=== PATIENT | female | born 1955 | race Caucasian/White ===

== ENCOUNTER 2017-12-27 13:53 | Observation (INO) ==
[2017-12-27] MEDS ORDERED: Sod Chloride 0.9% Inj 1,000 ML IV.SIG ONE (16:05)
--- NOTE | 2017-12-27 16:23 | ED ---
HPI General Chief Complaint: Headache Stated Complaint: Medical Time Seen by Provider: 12/27/17 16:05 Source: patient Mode of arrival: ambulatory Limitations: no limitations History of Present Illness HPI Narrative: 62-year-old female presents to the emergency department evaluation of headache, fatigue, stiff neck, general malaise that started proximal 1 week ago. Patient states that she went to her primary care physician , Dr. Webb, who recommended she come in for meningitis rule out. Patient states that she began having a headache approximately 1 week ago and has taken Advil once but this did not help her pain. Patient says the pain is diffuse across her entire head, dull, 7/10 and nonradiating. Patient states that the anterior portion of her neck is also tender. States she has occasional blurred vision and mild photophobia. She denies history of trauma. Has occasional passing nausea without vomiting. Denies of upper respiratory type of symptoms. Denies loss of consciousness. She denies rash. 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 She denies chronic medical issues or medication use. Related Data Home Medications Medication Instructions Recorded Confirmed No Known Home Medications 12/27/17 12/27/17 Allergies Allergy/AdvReac Type Severity Reaction Status Date / Time Sulfa (Sulfonamide Allergy Severe RASH Unverified 10/31/16 23:00 Antibiotics) Review of Systems ROS: all other systems reviewed are negative PMFSH Social History Social History Substance History: No History of Abuse Second Hand Smoke Exposure: No Smoking Status: Never smoker How Often Do You Have a Drink Containing Alcohol: 2 to 3 times a week Recent Travel in [facility] within the Last 8 Weeks: No Recent Out of Country Travel within the Last 8 Weeks: No Exam Narrative Exam Narrative: GENERAL: Well-developed, well-nourished no acute distress SKIN: Focused skin assessment warm/dry. HEAD: Atraumatic. Normocephalic. EYES: Pupils equal and round. No scleral icterus. No injection or drainage. ENT: No nasal bleeding or discharge. Mucous membranes pink and moist. NECK: Trachea midline. No JVD. Tenderness to palpation of the anterior portion of her neck, unable to fully flex or extend neck. Palpable cords present. CARDIOVASCULAR: Regular rate and rhythm. No murmur appreciated. RESPIRATORY: No accessory muscle use. Clear to auscultation. Breath sounds equal bilaterally. GASTROINTESTINAL: Abdomen soft, non-tender, nondistended. Hepatic and splenic margins not palpable. MUSCULOSKELETAL: No obvious deformities. No clubbing. No cyanosis. No edema. NEUROLOGICAL: Awake and alert. No obvious cranial nerve deficits. Motor grossly within normal limits. Normal speech. PSYCHIATRIC: Appropriate mood and affect; insight and judgment normal. Procedures Lumbar Puncture Time Out Performed: Yes Patient Position: left lateral decubitus Skin Prep: Povidone-Iodine 1% Local anesthetic used: Lidocaine 1% Amount of anesthesia used (mL): 3 Spinal Needle Gauge: 20G Interspace Used: L4-L5 Complications: unable to obtain CSF Additional Comments: Only one attempt was performed with a 20-gauge spinal needle and the patient complained of pain shooting down her legs, therefore the procedure was stopped. Course Initial Documented Vital Signs Temperature 98.4 F 12/27/17 14:09 Pulse Rate 71 12/27/17 14:09 Respiratory Rate 18 12/27/17 14:09 Blood Pressure 151/68 H 12/27/17 14:09 Pulse Oximetry 99 12/27/17 14:09 Last Documented Vital Signs Temperature 97.6 F 12/27/17 23:16 Pulse Rate 59 L 12/27/17 23:16 Respiratory Rate 18 12/27/17 23:16 Blood Pressure 132/71 12/27/17 23:16 Pulse Oximetry 96 12/27/17 23:16 Medical Decision Making NILS Attestation NILS supervised visit: Yes Attestation: At my mid-level note. See her note for further details. This is a 62-year-old female who was sent in by her primary care physician to rule out meningitis because she has had headache and neck stiffness. Her symptoms have been going on for over a week, gradual in onset, worse over the last couple of days. Headache is diffuse, described as pressure, severe, constant, associated with nausea, photophobia, neck pain and stiffness. She has not had any fevers or chills. CT head is unremarkable. Basic labs are unremarkable. The patient was provided Reglan and Toradol without improvement in her headache. LP was attempted by me to rule out SAH after informed consent was obtained for this procedure. I was unsuccessful. CTA of the brain and neck will be ordered to look for possible aneurysm. CTA brain and neck showed no obvious [place] aneurysms or abnormalities or neck arterial aneurysms or abnormalities. The patient had received 10 mg of IV Reglan, 30 mg of IV Toradol, and 4 mg of IV morphine, and on reassessment she states her pain is now 6. She continues to have photophobia. I explained all the tests in detail with the patient and the patient's son via cell phone. Given ongoing pain, I would like to admit her for overnight observation as I cannot 100% rule out a subarachnoid hemorrhage. I do not believe that this is meningitis. She is afebrile and very well-appearing, no nuchal rigidity, normal CBC. Case discussed with hospitalist Dr. Benitez who will admit the patient to her service for intractable headache and further workup. MDM Narrative Medical decision making narrative: 62-year-old female presents to the emergency department for evaluation of a headache started 1 week ago. She was advised to come to the emergency department by her primary care physician, Dr. Webb who recommended a rule out of meningitis. Labs are ordered and are stable. Vital signs are stable. Please see my attending's note as well regarding treatment today. Benadryl, Reglan, morphine, Toradol administered for pain. 1 L normal saline administered. Patient continues to have a headache. Admitted patient for intractable headache. Medical Screen Exam Complete: Yes Emergency Medical Condition: Yes Differential Diagnosis Differential Diagnosis: SAH, ICH, migraine, tension headache Lab Data Result diagrams: 12/27/17 16:20 12/27/17 16:20 Lab Results 12/27/17 12/27/17 12/27/17 Range/Units 16:20 16:20 16:20 WBC 6.1 (4.0-11.0) th/mm3 RBC 4.37 (4.00-5.30) mil/mm3 Hgb 13.5 (11.6-15.3) gm/dL Hct 39.5 (35.0-46.0) % MCV 90.3 (80.0-100.0) fL MCH 30.9 (27.0-34.0) pg MCHC 34.2 (32.0-36.0) % RDW 13.2 (11.6-17.2) % Plt Count 230 (150-450) th/mm3 MPV 9.2 (7.0-11.0) fL Neut % (Auto) 67.0 (16.0-70.0) % Lymph % (Auto) 26.8 (9.0-44.0) % [place] % (Auto) 4.5 (0.0-8.0) % Eos % (Auto) 0.9 (0.0-4.0) % Baso % (Auto) 0.8 (0.0-2.0) % Neut # (Auto) 4.1 (1.8-7.7) th/mm3 Lymph # (Auto) 1.6 (1.0-4.8) th/mm3 [place] # (Auto) 0.3 (0.0-0.9) th/mm3 Eos # (Auto) 0.1 (0.0-0.4) th/mm3 Baso # (Auto) 0.0 (0.0-0.2) th/mm3 WBC Differential . Differential Comment Auto diff final PT 9.8 (9.8-11.6) sec INR 1.0 Ratio APTT 25.5 (24.3-30.1) sec Sodium 143 (136-145) meq/L Potassium 3.5 (3.5-5.1) meq/L Chloride 104 (98-107) meq/L Carbon Dioxide 27.9 (21.0-32.0) meq/L Anion Gap 11 (5-15) meq/L BUN 12 (7-18) mg/dL Creatinine 0.81 (0.50-1.00) mg/dL Estimated GFR 72 L (>89) mL/min Random Glucose 92 (74-106) mg/dL Calcium 9.0 (8.5-10.1) mg/dL Total Bilirubin 0.4 (0.2-1.0) mg/dL AST 22 (15-37) U/L ALT 29 (10-53) U/L Alkaline Phosphatase 92 (45-117) U/L Total Protein 8.0 (6.4-8.2) g/dL Albumin 4.3 (3.4-5.0) g/dL Imaging Data Radiologist's impression: Head CT 12/27/17 16:05 CONCLUSION: 1. No acute intracranial abnormality. . Head CTA 12/27/17 18:51 CONCLUSION: No acute [place] vascular findings. Neck CTA 12/27/17 18:51 CONCLUSION: Negative CTA Carotid. Discharge Plan Discharge Disposition Patient Disposition: 30 Still Patient Discharge Condition Condition: Stable Discharge Details Diagnosis: Intractable headache Physicians Team ED Provider: Jonathan Kumar ED Midlevel Provider: Lucy Romero Primary Care Provider: Primary Care Estelle Viveros Attending Provider: Bhumi Benitez Status ED Status: Left Department Discharge Information Discharge Date/Time: 12/27/17 23:01
[2017-12-27 16:39] LABS: Baso % (Auto) 0.8 % (0.0-2.0); Eos # (Auto) 0.1 th/mm3 (0.0-0.4); Eos % (Auto) 0.9 % (0.0-4.0); Hematocrit 39.5 % (35.0-46.0); Hemoglobin 13.5 gm/dL (11.6-15.3); Lymph # (Auto) 1.6 th/mm3 (1.0-4.8); Lymph % (Auto) 26.8 % (9.0-44.0); Mean Corpuscular HGB Conc 34.2 % (32.0-36.0); Mean Corpuscular Hemoglobin 30.9 pg (27.0-34.0); Mean Corpuscular Volume 90.3 fL (80.0-100.0); Mean Platelet Volume 9.2 fL (7.0-11.0); Mono # (Auto) 0.3 th/mm3 (0.0-0.9); Mono % (Auto) 4.5 % (0.0-8.0); Neut # (Auto) 4.1 th/mm3 (1.8-7.7); Platelet Count 230 th/mm3 (150-450); Red Blood Count 4.37 mil/mm3 (4.00-5.30); Red Cell Distribution Width 13.2 % (11.6-17.2); White Blood Count 6.1 th/mm3 (4.0-11.0)
--- NOTE | 2017-12-27 16:48 | CT ---
EXAM DATE: 12/27/2017 4:10 PM EDT AGE/SEX: 62 years / Female INDICATIONS: Stiff neck and headache. Possible meningitis. CLINICAL DATA: This is the patient's initial encounter. Patient reports that signs and symptoms have been present for 3 days and indicates a pain score of 7/10. MEDICAL/SURGICAL HISTORY: None. None. RADIATION DOSE: 56.35 CTDI (mGy) COMPARISON: [facility], MR BRAIN W/O CONTRAST, 04/14/2015. . TECHNIQUE: CT of the head without contrast. Using automated exposure control and adjustment of the mA and/or kV according to patient size, radiation dose was kept as low as reasonably achievable to ob tain optimal diagnostic quality images. DICOM format image data is available electronically for revi ew and comparison. FINDINGS: Cerebrum: Mild to moderate diffuse cerebral atrophy. The ventricles are normal for degree of atrophy . Nonspecific bilateral basal ganglia calcifications. No evidence of midline shift, mass lesion, hemo rrhage or acute infarction. No extraaxial fluid collections are seen. Posterior Fossa: The cerebellum and brainstem are intact. The 4th ventricle is midline. The cerebe llopontine angle is unremarkable. Extracranial: The visualized portion of the orbits is intact. Skull: The calvaria is intact. No evidence of skull fracture. CONCLUSION: 1. No acute intracranial abnormality. . Electronically signed by: Tim Campbell MD 12/27/2017 4:47 PM EDT
[2017-12-27 16:54] LABS: Activated Partial Thrombo Time 25.5 sec (24.3-30.1); Prothrombin Time 9.8 sec (9.8-11.6)
[2017-12-27 17:12] LABS: Alanine Aminotransferase 29 U/L (10-53); Albumin 4.3 g/dL (3.4-5.0); Anion Gap 11 meq/L (5-15); Aspartate Aminotransferase 22 U/L (15-37); Blood Urea Nitrogen 12 mg/dL (7-18); Carbon Dioxide 27.9 meq/L (21.0-32.0); Chloride 104 meq/L (98-107); Glomerular Filtration Rate 72 mL/min (>89); Glucose,Random 92 mg/dL (74-106); Potassium 3.5 meq/L (3.5-5.1); Sodium 143 meq/L (136-145)
[2017-12-27 17:15] LABS: Alkaline Phosphatase 92 U/L (45-117)
[2017-12-27] MEDS ORDERED: Morphine Inj 4 MG/ML Vial IV.PUSH ONE (18:28)
--- NOTE | 2017-12-27 20:46 | CT ---
EXAM DATE: 12/27/2017 7:09 PM EDT AGE/SEX: 62 years / Female INDICATIONS: Stiff neck and headache. Evaluate for aneurysm. CLINICAL DATA: This is the patient's subsequent encounter. Patient reports that signs and symptoms h ave been present for 3 days and indicates a pain score of 7/10. MEDICAL/SURGICAL HISTORY: None. None. RADIATION DOSE: 24.75 CTDI (mGy) ; Combined studies COMPARISON: [facility] [place], [place] HEAD W/O CONTRAST, 12/27/2017. . TECHNIQUE: Volumetric scanning was performed using a multi-row detector CT scanner during bolus infu michelle of 75 ml Omnipaque 350 (iohexol) nonionic water-soluble contrast as a cumulative dose for multi ple exams. The data was post processed with a variety of visualization algorithms including full vo lume maximum intensity projection, multi-planar sliding thin slab reformation, curved planar reformat ion, and surface rendering techniques. Using automated exposure control and adjustment of the mA and /or kV according to patient size, radiation dose was kept as low as reasonably achievable to obtain o ptimal diagnostic quality images. DICOM format image data is available electronically for review and comparison. FINDINGS: There is excellent visualization of the major intracranial arteries out to the second-order branch ve ssels. There is no evidence for aneurysm, vessel truncation or stenosis, and no evidence for vascula r malformation. The A1 segment of left anterior cerebral artery is mildly hypoplastic. CONCLUSION: No acute [place] [facility] [place] vascular findings. Electronically signed by: Choco Burnett MD 12/27/2017 8:45 PM EDT
--- NOTE | 2017-12-27 21:07 | CT ---
EXAM DATE: 12/27/2017 7:09 PM EDT AGE/SEX: 62 years / Female INDICATIONS: Stiff neck and headache. Evaluate for aneurysm. CLINICAL DATA: This is the patient's subsequent encounter. Patient reports that signs and symptoms h ave been present for 3 days and indicates a pain score of 7/10. MEDICAL/SURGICAL HISTORY: None. None. RADIATION DOSE: 24.75 CTDI (mGy) ; Combined studies COMPARISON: No prior exams available for comparison. TECHNIQUE: Volumetric scanning was performed using a multirow detector CT scanner during bolus infus ion of 75 ml Omnipaque 350 (iohexol) nonionic water-soluble contrast as a cumulative dose for multip le exams. The data was postprocessed with a variety of visualization algorithms including full-volu me maximum intensity projection, multiplanar sliding thin-slab reformation, curved-planar reformation , and surface-rendering techniques. Using automated exposure control and adjustment of the mA and/or kV according to patient size, radiation dose was kept as low as reasonably achievable to obtain opti mal diagnostic quality images. DICOM format image data is available electronically for review and co mparison. Percent stenosis is calculated using the diameter of the stenotic region over the diameter of the nor mal distal internal carotid artery. FINDINGS: Aortic Arch: There is a three-vessel origin of the great vessels from the aorta. No evidence of ost ial narrowing Right Carotid: The common carotid artery is intact. The carotid bulb has a normal configuration wit hout ulceration or narrowing. The internal carotid artery lumen is smooth without stenosis. The ext ernal carotid artery is intact. Left Carotid: The common carotid artery is intact. The carotid bulb has a normal configuration with out ulceration or narrowing. The internal carotid artery lumen is smooth without stenosis. The exte rnal carotid artery is intact. Vertebrals: The vertebral arteries have a symmetric diameter. No stenotic lesions are seen. CONCLUSION: Negative CTA Carotid. Electronically signed by: Choco Burnett MD 12/27/2017 9:06 PM EDT
[2017-12-27] MEDS ORDERED: Acetaminophen 325 MG Tablet PO PRN (22:21)
[2017-12-27] MEDS ORDERED: Bisacodyl 10 MG Supp RECTAL PRN (22:21)
--- NOTE | 2017-12-27 22:23 | P.HPIM ---
History of Present Illness Primary Care Physician: No Primary Care Physician PMFSH - History History Provided By: Patient - Tobacco History Smoking Status: Never smoker - Alcohol History How Often Do You Have a Drink Containing Alcohol: Monthly or less - Substance Use History Substance History: No History of Abuse - Travel History Recent Travel in the [place] Within the Last 8 Weeks: No Recent Travel Out of the Country Within the Last 8 Weeks: No - Immunization History Tetanus Immunization: <5 Years Medications and Allergies Active Medications: Active Medications Sodium Chloride (Ns Flush) 2 ml IV.FLUSH PRN PRN PRN Reason: FLUSH AFTER USING IV ACCESS Allergies Allergy/AdvReac Type Severity Reaction Status Date / Time Sulfa (Sulfonamide Allergy Severe RASH Unverified 10/31/16 23:00 Antibiotics) Home Medications Medication Instructions Recorded Confirmed Type No Known Home Medications 12/27/17 12/27/17 History Exam Vital signs: Vital Signs 12/27/17 14:09 12/27/17 18:49 12/27/17 21:47 Temperature 98.4 F Pulse Rate 71 67 63 Respiratory Rate 18 17 18 Blood Pressure 151/68 H 121/69 103/63 Pulse Oximetry 99 98 Intake & Output 12/27/17 12/27/17 12/28/17 06:59 18:59 06:59 Intake Total 1000 / 1000 Balance 1000 / 1000 Weight 64.957 kg Intake: IV 1000 / 1000 NS Inj 1,000 ML @ Wide Open IV. 1000 / 1000 SIG BOLUS ONE Rx#:[id number] Results - Labs CBC & Chem 7: 12/27/17 16:20 12/27/17 16:20 Labs: Short CBC 12/27/17 Range/Units 16:20 WBC 6.1 (4.0-11.0) th/mm3 Hgb 13.5 (11.6-15.3) gm/dL Hct 39.5 (35.0-46.0) % Plt Count 230 (150-450) th/mm3 BMP 12/27/17 16:20 Sodium 143 Potassium 3.5 Chloride 104 Carbon Dioxide 27.9 BUN 12 Creatinine 0.81 Calcium 9.0 Liver Function 12/27/17 Range/Units 16:20 Total Bilirubin 0.4 (0.2-1.0) mg/dL AST 22 (15-37) U/L ALT 29 (10-53) U/L Alkaline Phosphatase 92 (45-117) U/L Albumin 4.3 (3.4-5.0) g/dL - Imaging Impressions Head CT 12/27/17 16:05 CONCLUSION: 1. No acute intracranial abnormality. . Head CTA 12/27/17 18:51 CONCLUSION: No acute [place] [facility] [place] vascular findings. Neck CTA 12/27/17 18:51 CONCLUSION: Negative CTA Carotid. Caprini VTE Risk Assessment Caprini Risk Assessment Model: Point Value = 1 Point Value = 2 Point Value = 3 Point Value = 5 Age 41-60 Minor surgery BMI > 25 kg/m2 Swollen legs Varicose veins or History of unexplained or recurrent spontaneous Oral contraceptives or hormone replacement Sepsis (< 1 month) Serious lung disease, including pneumonia (< 1 month) Abnormal pulmonary function Acute myocardial infarction Congestive heart failure (< 1 month) History of inflammatory bowel disease Medical patient at bed rest Age 61-74 Arthroscopic surgery Major open surgery (> 45 min) Laparoscopic surgery (> 45 min) Malignancy Confined to bed (> 72 hours) Immobilizing plaster cast Central venous access Age >= 75 History of VTE Family history of VTE Factor V Leiden Prothrombin [id number] Lupus anticoagulant Anticardiolipin antibodies Elevated serum homocysteine Heparin-induced thrombocytopenia Other congenital or acquired thrombophilia Stroke (< 1 month) Elective arthroplasty Hip, pelvis, or leg fracture Acute spinal cord injury (< 1 month) Prophylaxis Regimen: Total Risk Factor Score Risk Level Prophylaxis Regimen 0-1 Low Early ambulation 2 Moderate Order ONE of the following: *Sequential Compression Device (SCD) *Heparin 5000 units SQ BID 3-4 Higher Order ONE of the following medications: *Heparin 5000 units SQ TID *Enoxaparin/Lovenox 40 mg SQ daily (WT < 150 kg, CrCl > 30 mL/min) *Enoxaparin/Lovenox 30 mg SQ daily (WT < 150 kg, CrCl > 10-29 mL/min) *Enoxaparin/Lovenox 30 mg SQ BID (WT < 150 kg, CrCl > 30 mL/min) AND/OR *Sequential Compression Device (SCD) 5 or more Highest Order ONE of the following medications: *Heparin 5000 units SQ TID (Preferred with Epidurals) *Enoxaparin/Lovenox 40 mg SQ daily (WT < 150 kg, CrCl > 30 mL/min) *Enoxaparin/Lovenox 30 mg SQ daily (WT < 150 kg, CrCl > 10-29 mL/min) *Enoxaparin/Lovenox 30 mg SQ BID (WT < 150 kg, CrCl > 30 mL/min) AND *Sequential Compression Device (SCD)
[2017-12-27] MEDS: Sod Chloride 0.9% Inj 1,000 ML IV.CONT SCH (23:08)
--- NOTE | 2017-12-27 23:20 | P.HPIM ---
History of Present Illness Service: [facility] Primary Care Physician: No Primary Care Physician Chief Complaint: Headache History of Present Illness: 62-year-old female with a history of degenerative disc disease presented to the ED with complaints of a headache. She states for the last 1 week she has been experiencing headaches with a stiff neck and generalized weakness. She explains the pain is throbbing, constant, all over her head with radiation down her right arm, 8/10, with associated nausea and blurred vision worse with lights , nothing makes it better. She denies any associated chest pain, sob, fever or chills. Review of Systems All other systems reviewed negative except as stated in [facility]PI [facility] - History History Provided By: Patient - Medical / Surgical Hx Neg / Unobtainable Surgical History: No Previous Surgery - Medical History Medical History: Medical History (Last Updated 12/30/17 @ 00:19 by MONICA Solomon) Degenerative disk disease - Family History Family History: Family History (Last Updated 12/30/17 @ 00:19 by MONICA Solomon) Other Family history normal - Social History I have reviewed the patient's Social History: Yes - Tobacco History Second Hand Smoke Exposure: No Smoking Status: Never smoker - Alcohol History How Often Do You Have a Drink Containing Alcohol: 2 to 3 times a week - Substance Use History Substance History: No History of Abuse - Travel History Recent Travel in the [place] Within the Last 8 Weeks: No Recent Travel Out of the Country Within the Last 8 Weeks: No - Immunization History Tetanus Immunization: <5 Years Medications and Allergies Active Medications: Active Medications Acetaminophen (Tylenol) 650 mg PO Q4H PRN PRN Reason: Temp > 100.4 Al Hydroxide/Mg Hydroxide (Milk Of Magnesia Liq) 30 ml PO Q12H PRN PRN Reason: Mild Constipation Bisacodyl (Dulcolax Supp) 10 mg RECTAL DAILY PRN PRN Reason: SEVERE CONSITIPATION Diphenhydramine HCl (Benadryl Inj) 25 mg IV.PUSH Q6H PRN PRN Reason: MIGRAINE HEADACHE Sodium Chloride (Ns Inj) 1,000 mls @ 100 mls/hr IV.CONT .Q10H SHASHANK Last Admin: 12/27/17 23:08 Dose: 100 mls/hr Lactulose (Lactulose Liq) 30 ml PO DAILY PRN PRN Reason: SEVERE CONSITIPATION Morphine Sulfate (Morphine Inj) 2 mg IV.PUSH Q4H PRN PRN Reason: PAIN 6-10 Ondansetron HCl (Zofran Inj) 4 mg IV.PUSH Q6H PRN PRN Reason: NAUSEA OR VOMITING Prochlorperazine Edisylate (Compazine Inj) 10 mg IV.PUSH Q6H PRN PRN Reason: MIGRAINE HEADACHE Senna/Docusate Sodium (Christie-Colace) 1 tab PO BID SHASHANK Sennosides (Senokot) 17.2 mg PO Q12H PRN PRN Reason: Moderate Constipation Sodium Chloride (Ns Flush) 2 ml IV.FLUSH PRN PRN PRN Reason: FLUSH AFTER USING IV ACCESS Allergies Allergy/AdvReac Type Severity Reaction Status Date / Time Sulfa (Sulfonamide Allergy Severe RASH Unverified 10/31/16 23:00 Antibiotics) Exam Vital signs: Vital Signs 12/27/17 14:09 12/27/17 18:49 12/27/17 21:47 Temperature 98.4 F Pulse Rate 71 67 63 Respiratory Rate 18 17 18 Blood Pressure 151/68 H 121/69 103/63 Pulse Oximetry 99 98 12/27/17 23:16 Temperature 97.6 F Pulse Rate 59 L Respiratory Rate 18 Blood Pressure 132/71 Pulse Oximetry 96 Intake & Output 12/27/17 12/27/17 12/28/17 06:59 18:59 06:59 Intake Total 1000 / 1000 Balance 1000 / 1000 Weight 64.957 kg 64.864 kg Intake: IV 1000 / 1000 NS Inj 1,000 ML @ Wide Open IV. 1000 / 1000 SIG BOLUS ONE Rx#:[id number] Other: Weight On Admission 64.864 kg Narrative: GENERAL: This is a well-nourished, well-developed patient, in no apparent distress. CARDIOVASCULAR: Regular rate and rhythm without murmurs, gallops, or rubs. RESPIRATORY: Clear to auscultation. Breath sounds equal bilaterally. No wheezes , rales, or rhonchi. GASTROINTESTINAL: Abdomen soft, non-tender, nondistended. Normal active bowel sounds MUSCULOSKELETAL: Extremities without clubbing, cyanosis, or edema. NEURO: Alert & Oriented x4 to person, place, time, situation. Moves all ext x4. sensitive to light Results - Labs CBC & Chem 7: 12/28/17 09:26 10/12/18 09:26 Labs: Short CBC 12/27/17 Range/Units 16:20 WBC 6.1 (4.0-11.0) th/mm3 Hgb 13.5 (11.6-15.3) gm/dL Hct 39.5 (35.0-46.0) % Plt Count 230 (150-450) th/mm3 BMP 12/27/17 16:20 Sodium 143 Potassium 3.5 Chloride 104 Carbon Dioxide 27.9 BUN 12 Creatinine 0.81 Calcium 9.0 Liver Function 12/27/17 Range/Units 16:20 Total Bilirubin 0.4 (0.2-1.0) mg/dL AST 22 (15-37) U/L ALT 29 (10-53) U/L Alkaline Phosphatase 92 (45-117) U/L Albumin 4.3 (3.4-5.0) g/dL - Imaging Impressions Head CT 12/27/17 16:05 CONCLUSION: 1. No acute intracranial abnormality. . Head CTA 12/27/17 18:51 CONCLUSION: No acute [place] of Abdi vascular findings. Neck CTA 12/27/17 18:51 CONCLUSION: Negative CTA Carotid. Caprini VTE Risk Assessment Caprini VTE Risk Assessment: No/Low Risk (score <= 1) Caprini Risk Assessment Model: Point Value = 1 Point Value = 2 Point Value = 3 Point Value = 5 Age 41-60 Minor surgery BMI > 25 kg/m2 Swollen legs Varicose veins or History of unexplained or recurrent spontaneous Oral contraceptives or hormone replacement Sepsis (< 1 month) Serious lung disease, including pneumonia (< 1 month) Abnormal pulmonary function Acute myocardial infarction Congestive heart failure (< 1 month) History of inflammatory bowel disease Medical patient at bed rest Age 61-74 Arthroscopic surgery Major open surgery (> 45 min) Laparoscopic surgery (> 45 min) Malignancy Confined to bed (> 72 hours) Immobilizing plaster cast Central venous access Age >= 75 History of VTE Family history of VTE Factor V Leiden Prothrombin [id number] Lupus anticoagulant Anticardiolipin antibodies Elevated serum homocysteine Heparin-induced thrombocytopenia Other congenital or acquired thrombophilia Stroke (< 1 month) Elective arthroplasty Hip, pelvis, or leg fracture Acute spinal cord injury (< 1 month) Prophylaxis Regimen: Total Risk Factor Score Risk Level Prophylaxis Regimen 0-1 Low Early ambulation 2 Moderate Order ONE of the following: *Sequential Compression Device (SCD) *Heparin 5000 units SQ BID 3-4 Higher Order ONE of the following medications: *Heparin 5000 units SQ TID *Enoxaparin/Lovenox 40 mg SQ daily (WT < 150 kg, CrCl > 30 mL/min) *Enoxaparin/Lovenox 30 mg SQ daily (WT < 150 kg, CrCl > 10-29 mL/min) *Enoxaparin/Lovenox 30 mg SQ BID (WT < 150 kg, CrCl > 30 mL/min) AND/OR *Sequential Compression Device (SCD) 5 or more Highest Order ONE of the following medications: *Heparin 5000 units SQ TID (Preferred with Epidurals) *Enoxaparin/Lovenox 40 mg SQ daily (WT < 150 kg, CrCl > 30 mL/min) *Enoxaparin/Lovenox 30 mg SQ daily (WT < 150 kg, CrCl > 10-29 mL/min) *Enoxaparin/Lovenox 30 mg SQ BID (WT < 150 kg, CrCl > 30 mL/min) AND *Sequential Compression Device (SCD) Assessment and Plan - Plan 62-year-old female with a history of degenerative disc disease presented to the ED with complaints of a headache. Cephalgia with generalized weakness, r/o SDH or Mass Head CT reviewed and shows no acute abnormalities -Consult IR for lumbar puncture -Morphine IV for pain, also compazine with Benadryl as needed -MRI of the brain ordered -Consult neurology if needed DVT prophylaxis: SCDs Discussed Condition With: Patient and RN H&P: Quality - VTE Deep Vein Thrombosis/Pulmonary Embolism Present on Admission: No
[2017-12-28] MEDS: Morphine Sulfate Inj 2 MG/ML Vial IV.PUSH PRN ×3 (00:23→21:43)
[2017-12-28] MEDS: Senna/Docusate Sodium 8.6/50 MG Tablet PO SCH ×2 (08:28→21:25)
[2017-12-28] MEDS: Sod Chloride 0.9% Inj 1,000 ML IV.CONT SCH ×2 (08:29→21:25)
[2017-12-28] MEDS ORDERED: Gadobutrol PF 7.5 MMOL/7.5 ML Vial (for RAD) IV.SIG ONE (09:52)
--- NOTE | 2017-12-28 10:03 | MR ---
EXAM DATE: 12/28/2017 8:34 AM EDT AGE/SEX: 62 years / Female INDICATIONS: Cephalgia. CLINICAL DATA: This is the patient's initial encounter. Patient reports that signs and symptoms have been present for 2 days and indicates a pain score of 6/10. MEDICAL/SURGICAL HISTORY: None. Tonsillectomy. Breast augmentation. COMPARISON: POI, MR BRAIN W/O CONTRAST, 04/14/2015. . TECHNIQUE: Multiplanar, multisequence examination of the brain was performed without and with 6.5 ml Gadavist (gadobutrol) contrast as a single exam dose. FINDINGS: Cerebrum: The the ventricles are normal size. Minimal periventricular white matter changes are evide nt. There are no extra-axial fluid collections appreciated. There is no parenchymal hemorrhage. White Matter: Minimal periventricular matter changes. Posterior Fossa: The cerebellum and brainstem are intact. The 4th ventricle is midline. The cerebel lopontine angle is unremarkable. The cerebellar tonsils are normal in position. Diffusion Imaging: No focal areas of restricted diffusion are seen. No evidence of acute infarction . Extracranial: The visualized portions of the orbits and paranasal sinuses are unremarkable. Post Contrast: No abnormal areas of parenchymal or dural enhancement. No evidence of blood-brain ba rrier breakdown. CONCLUSION: 1. Minimal periventricular white matter changes as described above. Negative for an acute process. Electronically signed by: Rey Morales MD 12/28/2017 10:01 AM EDT
[2017-12-28 10:08] LABS: Baso % (Auto) 0.9 % (0.0-2.0); Eos # (Auto) 0.1 th/mm3 (0.0-0.4); Eos % (Auto) 1.7 % (0.0-4.0); Hematocrit 36.8 % (35.0-46.0); Hemoglobin 12.6 gm/dL (11.6-15.3); Lymph % (Auto) 24.7 % (9.0-44.0); Mean Corpuscular HGB Conc 34.2 % (32.0-36.0); Mean Corpuscular Hemoglobin 31.1 pg (27.0-34.0); Mean Corpuscular Volume 90.9 fL (80.0-100.0); Mean Platelet Volume 9.1 fL (7.0-11.0); Mono # (Auto) 0.2 th/mm3 (0.0-0.9); Mono % (Auto) 6.2 % (0.0-8.0); Neut # (Auto) 2.6 th/mm3 (1.8-7.7); Neut % (Auto) 66.5 % (16.0-70.0); Platelet Count 217 th/mm3 (150-450); Red Blood Count 4.05 mil/mm3 (4.00-5.30); Red Cell Distribution Width 13.1 % (11.6-17.2)
[2017-12-28 10:56] LABS: Alanine Aminotransferase 26 U/L (10-53); Albumin 3.6 g/dL (3.4-5.0); Anion Gap 9 meq/L (5-15); Aspartate Aminotransferase 17 U/L (15-37); Blood Urea Nitrogen 7 mg/dL (7-18); Calcium 8.3 mg/dL (8.5-10.1); Carbon Dioxide 28.3 meq/L (21.0-32.0); Chloride 106 meq/L (98-107); Glomerular Filtration Rate Greater Than 89 mL/min (>89); Glucose,Random 91 mg/dL (74-106); Potassium 3.6 meq/L (3.5-5.1); Sodium 143 meq/L (136-145)
[2017-12-28 11:10] LABS: Alkaline Phosphatase 75 U/L (45-117)
[2017-12-28 12:22] LABS: Neutrophils,CSF 0 %; RBC on Tube 4 2 /mm3
--- NOTE | 2017-12-28 15:22 | IR ---
EXAM DATE: 12/28/2017 12:00 AM EDT AGE/SEX: 62 years / Female INDICATIONS: Patient presents with headache and generalized weakness in need of lumbar puncture. CLINICAL DATA: This is the patient's initial encounter. Patient reports that signs and symptoms have been present for 1 week and indicates a pain score of 7/10. MEDICAL/SURGICAL HISTORY: . Degenerative disc disease, None. COMPARISON: No prior exams available for comparison. FLUORO TIME (min): 0.8 IMAGE SERIES: 2 ACCESS SITE: L2-3 LUMBAR PUNCTURE TIME: 1057 hours OPENING PRESSURE: 17 cm of water CLOSING PRESSURE: not requested FLUID: Total volume of 14 cc of clear fluid was removed. Fluid was sent to lab for ordered studies. ; . . PROCEDURE: 1. Fluoroscopic guided lumbar puncture. The risks, benefits and alternatives to the procedure were explained and verbal and written consent w as obtained. The site was prepped in sterile fashion. Full sterile technique was used, including ca p, mask, sterile gloves and gown and a large sterile sheet. Hand hygiene and 2% chlorhexidine and/or betadine/alcohol prep was utilized per protocol for cutaneous antisepsis. The skin and subcutaneous tissues were infiltrated with local anesthetic solution. With fluoroscopic guidance the lumbar thecal sac was punctured at the level above. The fluid describ ed above was removed without difficulty. The patient tolerated the procedure well and there were no complications. CONCLUSION: Uncomplicated fluoroscopically guided lumbar puncture. Electronically signed by: Choco Burnett MD 12/28/2017 3:21 PM EDT
--- NOTE | 2017-12-28 18:01 | P.PN ---
Subjective Interval history: Patient seen lying in bed post lumbar puncture. She reports that she continues to have a headache which involves her entire head. She denies changes in vision but does endorse photophobia and nausea. No chest pain or shortness of breath. No diarrhea. Physical Exam Vital signs: Vital Signs 12/27/17 18:49 12/27/17 21:47 12/27/17 23:16 Temperature 97.6 F Pulse Rate 67 63 59 L Respiratory Rate 17 18 18 Blood Pressure 121/69 103/63 132/71 Pulse Oximetry 98 96 12/28/17 03:59 12/28/17 08:00 12/28/17 12:16 Temperature 98.3 F 98.1 F 98.9 F Pulse Rate 54 L 65 63 Respiratory Rate 16 16 16 Blood Pressure 110/63 129/58 L 112/61 Pulse Oximetry 97 100 99 12/28/17 16:00 Temperature 98.0 F Pulse Rate 77 Respiratory Rate 16 Blood Pressure 133/68 Pulse Oximetry 96 Intake & Output 12/27/17 12/28/17 12/28/17 18:59 06:59 18:59 Intake Total 1000 / 1000 500 / 500 900 / 900 Balance 1000 / 1000 500 / 500 900 / 900 Weight 64.957 kg 64.864 kg Intake: IV 1000 / 1000 900 / 900 NS Inj 1,000 ML @ 100 mls/hr IV 900 / 900 .CONT .Q10H SHASHANK Rx#:[id number] NS Inj 1,000 ML @ Wide Open IV. 1000 / 1000 SIG BOLUS ONE Rx#:[id number] Oral 500 / 500 Other: # Voids 1 Date of Last Bowel Movement 12/26/17 12/27/17 Weight On Admission 64.864 kg Narrative: GENERAL: This is a well-nourished, well-developed patient, in no apparent distress. EYES: PERRLA, no drainage or injury. CARDIOVASCULAR: Regular rate and rhythm without murmurs, gallops, or rubs. RESPIRATORY: Clear to auscultation. Breath sounds equal bilaterally. No wheezes , rales, or rhonchi. GASTROINTESTINAL: Abdomen soft, non-tender, nondistended. Normal active bowel sounds MUSCULOSKELETAL: Extremities without clubbing, cyanosis, or edema. NEURO: Alert & Oriented x4 to person, place, time, situation. Moves all ext x4. sensitive to light Results - Labs CBC & Chem 7: 12/28/17 09:26 12/28/17 09:26 Laboratory Results - last 24 hr 12/28/17 12/28/17 12/28/17 09:26 09:26 10:57 WBC 4.0 RBC 4.05 Hgb 12.6 Hct 36.8 MCV 90.9 MCH 31.1 MCHC 34.2 RDW 13.1 Plt Count 217 MPV 9.1 Neut % (Auto) 66.5 Lymph % (Auto) 24.7 Bent % (Auto) 6.2 Eos % (Auto) 1.7 Baso % (Auto) 0.9 Neut # (Auto) 2.6 Lymph # (Auto) 1.0 Bent # (Auto) 0.2 Eos # (Auto) 0.1 Baso # (Auto) 0.0 WBC Differential . Differential Comment Auto diff final Sodium 143 Potassium 3.6 Chloride 106 Carbon Dioxide 28.3 Anion Gap 9 BUN 7 Creatinine 0.67 Estimated GFR Greater than 89 Random Glucose 91 Calcium 8.3 L Total Bilirubin 0.5 AST 17 ALT 26 Alkaline Phosphatase 75 Total Protein 7.0 D Albumin 3.6 D CSF Volume (1) 3.8 CSF Supernat Color (1) Clear CSF Gross Blood (1) 0 CSF Volume (2) 2.5 CSF Supernat Color (2) Clear CSF Gross Blood (2) 0 CSF Volume (3) 3.5 CSF Supernat Color (3) Clear CSF Gross Blood (3) 0 CSF Volume (4) 4.0 CSF Supernat Color (4) Clear CSF Gross Blood (4) 0 CSF WBC (4) 0 CSF RBC (4) 2 H CSF Neutrophils % 0 CSF Glucose CSF Total Protein 12/28/17 10:57 WBC RBC Hgb Hct MCV MCH MCHC RDW Plt Count MPV Neut % (Auto) Lymph % (Auto) Bent % (Auto) Eos % (Auto) Baso % (Auto) Neut # (Auto) Lymph # (Auto) Bent # (Auto) Eos # (Auto) Baso # (Auto) WBC Differential Differential Comment Sodium Potassium Chloride Carbon Dioxide Anion Gap BUN Creatinine Estimated GFR Random Glucose Calcium Total Bilirubin AST ALT Alkaline Phosphatase Total Protein Albumin CSF Volume (1) CSF Supernat Color (1) CSF Gross Blood (1) CSF Volume (2) CSF Supernat Color (2) CSF Gross Blood (2) CSF Volume (3) CSF Supernat Color (3) CSF Gross Blood (3) CSF Volume (4) CSF Supernat Color (4) CSF Gross Blood (4) CSF WBC (4) CSF RBC (4) CSF Neutrophils % CSF Glucose 57 CSF Total Protein 33.0 Microbiology 12/28/17 10:57 Lumbar Puncture Gram Stain - Final - Imaging Impressions Head CTA 12/27/17 18:51 CONCLUSION: No acute [place] of [place]di vascular findings. Neck CTA 12/27/17 18:51 CONCLUSION: Negative CTA Carotid. Lumbar Puncture Fluoroscopy 12/28/17 00:00 CONCLUSION: Uncomplicated fluoroscopically guided lumbar puncture. Head MRI 12/28/17 07:04 CONCLUSION: 1. Minimal periventricular white matter changes as described above. Negative for an acute process. Assessment and Plan - Assessment (1) Intractable headache Code(s): R51 - Headache Status: Acute - Plan 62-year-old female with a history of degenerative disc disease presented to the ED with complaints of a headache. Cephalgia with generalized weakness, r/o SDH or Mass Head CT reviewed and shows no acute abnormalities -Consult IR for lumbar puncture - done 12/28 -Morphine IV for pain, also compazine with Benadryl as needed -MRI of the brain ordered -Consult neurology if needed DVT prophylaxis: SCDs Discussed Condition With: Patient and RN (1) Intractable headache Qualifiers: Headache type: unspecified Headache chronicity pattern: unspecified pattern Qualified Code(s): R51 - Headache
[2017-12-29] MEDS: Sod Chloride 0.9% Inj 1,000 ML IV.CONT SCH (04:34)
[2017-12-29] MEDS: Morphine Sulfate Inj 2 MG/ML Vial IV.PUSH PRN (04:43)
[2017-12-29] MEDS: Senna/Docusate Sodium 8.6/50 MG Tablet PO SCH (08:58)
--- NOTE | 2017-12-29 09:37 | MR ---
EXAM DATE: 12/29/2017 9:02 AM EDT AGE/SEX: 62 years / Female INDICATIONS: . Neck pain. CLINICAL DATA: This is the patient's initial encounter. Patient reports that signs and symptoms have been present for 1 day and indicates a pain score of 4/10. MEDICAL/SURGICAL HISTORY: None. Tonsillectomy. COMPARISON: C, CTA NECK W CONTRAST W 3D, 12/27/2017. POI, MR LUMBAR SPINE W/O CONTRAST, 2016. . TECHNIQUE: Multiplanar, multisequence MRI examination of the cervical spine was performed without co ntrast. FINDINGS: Vertebrae: Normal vertebral body height. Homogeneous marrow signal. Alignment: There is minimal anterolisthesis of C4 on C5. Cord: Normal configuration and signal. Post Fossa: The cerebellar tonsils are normal in position. C2-C3: The thecal sac has a normal configuration. There is no evidence of disc herniation or spinal canal stenosis. The neural foramina are patent bilaterally. C3-C4: The thecal sac has a normal configuration. There is no evidence of disc herniation or spinal canal stenosis. The neural foramina are patent bilaterally. C4-C5: Mild broad-based disc osteophyte complex and uncovertebral joint hypertrophy. Mild to moderat e right-sided neural foraminal narrowing. Mild right-sided facet degenerative change. C5-C6: Disc desiccation and disc space narrowing with anterior posterior bony productive changes. Un covertebral joint hypertrophy. There is mild bilateral neuroforaminal narrowing. C6-C7: Disc desiccation and disc space narrowing with small broad-based posterior disc osteophyte co mplex and uncovertebral joint hypertrophy. Mild right-sided neural foraminal narrowing. C7-T1: No epidural impressions seen. CONCLUSION: 1. Degenerative changes as noted above. No significant narrowing of the spinal canal. Predominantly right-sided neural foraminal narrowing. Electronically signed by: Ginny Berman MD 12/29/2017 9:36 AM EDT
--- NOTE | 2017-12-29 10:26 | P.PN ---
Subjective Interval history: Patient is lying quietly in bed. She reports that she still has the same all- encompassing headache with photophobia. No nausea or vomiting but she does not tight. Neck is still sore. No fevers or chills. No significant changes in vision. No chest pain or shortness of breath per discussed medications for migraines and she is not interested in taking anything that is prescription. She tells me that she would like to go home today in follow-up outpatient with ophthalmology and neurology. Physical Exam Vital signs: Vital Signs 12/28/17 12:16 12/28/17 16:00 12/28/17 20:47 Temperature 98.9 F 98.0 F 98.2 F Pulse Rate 63 77 74 Respiratory Rate 16 16 18 Blood Pressure 112/61 133/68 129/74 Pulse Oximetry 99 96 95 12/29/17 00:00 12/29/17 03:47 12/29/17 07:32 Temperature 97.7 F 97.8 F 98.5 F Pulse Rate 63 66 66 Respiratory Rate 17 16 20 Blood Pressure 123/72 112/70 116/70 Pulse Oximetry 97 97 100 Intake & Output 12/28/17 12/29/17 12/29/17 18:59 06:59 18:59 Intake Total 900 / 900 1000 / 1000 Balance 900 / 900 1000 / 1000 Intake: IV 900 / 900 1000 / 1000 NS Inj 1,000 ML @ 100 mls/hr IV 900 / 900 1000 / 1000 .CONT .Q10H SHASHANK Rx#:[id number] Other: # Voids 3 1 Date of Last Bowel Movement 12/27/17 12/27/17 Narrative: GENERAL: This is a well-nourished, well-developed patient, in no apparent distress. EYES: PERRLA, no drainage or injury. NECK: Supple, trachea midline; no obvious adenopathy; no JVD distention. Mild tenderness to left of cervical spine. CARDIOVASCULAR: Regular rate and rhythm without murmurs, gallops, or rubs. RESPIRATORY: Clear to auscultation. Breath sounds equal bilaterally. No wheezes , rales, or rhonchi. GASTROINTESTINAL: Abdomen soft, non-tender, nondistended. Normal active bowel sounds MUSCULOSKELETAL: Extremities without clubbing, cyanosis, or edema. NEURO: Alert & Oriented x4 to person, place, time, situation. Moves all ext x4. sensitive to light Results - Labs CBC & Chem 7: 12/28/17 09:26 12/28/17 09:26 Laboratory Results - last 24 hr 12/28/17 12/28/17 12/28/17 09:26 10:57 10:57 Sodium 143 Potassium 3.6 Chloride 106 Carbon Dioxide 28.3 Anion Gap 9 BUN 7 Creatinine 0.67 Estimated GFR Greater than 89 Random Glucose 91 Calcium 8.3 L Total Bilirubin 0.5 AST 17 ALT 26 Alkaline Phosphatase 75 Total Protein 7.0 D Albumin 3.6 D CSF Volume (1) 3.8 CSF Supernat Color (1) Clear CSF Gross Blood (1) 0 CSF Volume (2) 2.5 CSF Supernat Color (2) Clear CSF Gross Blood (2) 0 CSF Volume (3) 3.5 CSF Supernat Color (3) Clear CSF Gross Blood (3) 0 CSF Volume (4) 4.0 CSF Supernat Color (4) Clear CSF Gross Blood (4) 0 CSF WBC (4) 0 CSF RBC (4) 2 H CSF Neutrophils % 0 CSF Glucose 57 CSF Total Protein 33.0 Microbiology 12/28/17 10:57 Lumbar Puncture Gram Stain - Final 12/28/17 10:57 Lumbar Puncture CSF Culture - Preliminary No growth in 24 hours - Imaging Impressions Lumbar Puncture Fluoroscopy 12/28/17 00:00 CONCLUSION: Uncomplicated fluoroscopically guided lumbar puncture. Cervical Spine MRI 12/29/17 00:00 CONCLUSION: 1. Degenerative changes as noted above. No significant narrowing of the spinal canal. Predominantly right-sided neural foraminal narrowing. Assessment and Plan - Assessment (1) Intractable headache Code(s): R51 - Headache Status: Acute - Plan 62-year-old female with a history of degenerative disc disease presented to the ED with complaints of a headache. Cephalgia with generalized weakness, r/o SDH or Mass -Imaging and lumbar puncture show no acute abnormalities -Morphine IV for pain, also compazine with Benadryl as needed -No Neuro consult -patient would prefer to follow-up outpatient DVT prophylaxis: SCDs Discussed Condition With: Patient and RN (1) Intractable headache Qualifiers: Headache type: unspecified Headache chronicity pattern: unspecified pattern Qualified Code(s): R51 - Headache
--- NOTE | 2017-12-29 10:29 | P.DS ---
Date of admission: 12/27/17 22:21 Primary care physician: No Primary Care Physician Attending physician on discharge: Jose Manuel West Anticipated date of discharge: 12/29/17 Brief History from admission: 62-year-old female with a history of degenerative disc disease presented to the ED with complaints of a headache. She states for the last 1 week she has been experiencing headaches with a stiff neck and generalized weakness. She explains the pain is throbbing, constant, all over her head with radiation down her right arm, 8/10, with associated nausea and blurred vision worse with lights , nothing makes it better. She denies any associated chest pain, sob, fever or chills. DS: Diagnosis - Discharge Diagnosis (1) Intractable headache Status: Acute DS: Summary Hospital Course: Patient is a 62-year-old female with no significant medical history. She presented to the emergency department after several days of a headache that would not resolved. Imaging, labs and lumbar puncture showed no acute process. Patient failed to find relief with medication. Decided to follow-up with outpatient neurology and ophthalmology as she needs to get back to work. - Time Spent with Patient Total time spent providing and/or coordinating discharge services: Less than 30 minutes - Quality: VTE Deep Vein Thrombosis/Pulmonary Embolism Present on Admission: No Exam Vital signs: Vital Signs 12/28/17 12:16 12/28/17 16:00 12/28/17 20:47 Temperature 98.9 F 98.0 F 98.2 F Pulse Rate 63 77 74 Respiratory Rate 16 16 18 Blood Pressure 112/61 133/68 129/74 Pulse Oximetry 99 96 95 12/29/17 00:00 12/29/17 03:47 12/29/17 07:32 Temperature 97.7 F 97.8 F 98.5 F Pulse Rate 63 66 66 Respiratory Rate 17 16 20 Blood Pressure 123/72 112/70 116/70 Pulse Oximetry 97 97 100 Intake & Output 12/28/17 12/29/17 12/29/17 18:59 06:59 18:59 Intake Total 900 / 900 1000 / 1000 Balance 900 / 900 1000 / 1000 Intake: IV 900 / 900 1000 / 1000 NS Inj 1,000 ML @ 100 mls/hr IV 900 / 900 1000 / 1000 .CONT .Q10H SHASHANK Rx#:[id number] Other: # Voids 3 1 Date of Last Bowel Movement 12/27/17 12/27/17 Narrative: GENERAL: This is a well-nourished, well-developed patient, in no apparent distress. EYES: PERRLA, no drainage or injury. NECK: Supple, trachea midline; no obvious adenopathy; no JVD distention. Mild tenderness to left of cervical spine. CARDIOVASCULAR: Regular rate and rhythm without murmurs, gallops, or rubs. RESPIRATORY: Clear to auscultation. Breath sounds equal bilaterally. No wheezes , rales, or rhonchi. GASTROINTESTINAL: Abdomen soft, non-tender, nondistended. Normal active bowel sounds MUSCULOSKELETAL: Extremities without clubbing, cyanosis, or edema. NEURO: Alert & Oriented x4 to person, place, time, situation. Moves all ext x4. sensitive to light Results Procedures completed during hospitalization: Lumbar puncture Labs on day of discharge: Labs from last 24 hours 12/28/17 12/28/17 12/28/17 10:57 10:57 09:26 Sodium 143 Potassium 3.6 Chloride 106 Carbon Dioxide 28.3 Anion Gap 9 BUN 7 Creatinine 0.67 Estimated GFR Greater than 89 Random Glucose 91 Calcium 8.3 L Total Bilirubin 0.5 AST 17 ALT 26 Alkaline Phosphatase 75 Total Protein 7.0 D Albumin 3.6 D CSF Volume (1) 3.8 CSF Supernat Color (1) Clear CSF Gross Blood (1) 0 CSF Volume (2) 2.5 CSF Supernat Color (2) Clear CSF Gross Blood (2) 0 CSF Volume (3) 3.5 CSF Supernat Color (3) Clear CSF Gross Blood (3) 0 CSF Volume (4) 4.0 CSF Supernat Color (4) Clear CSF Gross Blood (4) 0 CSF WBC (4) 0 CSF RBC (4) 2 H CSF Neutrophils % 0 CSF Glucose 57 CSF Total Protein 33.0 Preliminary micro results at discharge 12/28/17 10:57 CSF Culture - Preliminary Lumbar Puncture No growth in 24 hours - Impressions ITS Impressions Head CT 12/27/17 16:05 CONCLUSION: 1. No acute intracranial abnormality. . Head CTA 12/27/17 18:51 CONCLUSION: No acute [place] vascular findings. Neck CTA 12/27/17 18:51 CONCLUSION: Negative CTA Carotid. Lumbar Puncture Fluoroscopy 12/28/17 00:00 CONCLUSION: Uncomplicated fluoroscopically guided lumbar puncture. Head MRI 12/28/17 07:04 CONCLUSION: 1. Minimal periventricular white matter changes as described above. Negative for an acute process. Cervical Spine MRI 12/29/17 00:00 CONCLUSION: 1. Degenerative changes as noted above. No significant narrowing of the spinal canal. Predominantly right-sided neural foraminal narrowing. Discharge Plan - Discharge Disposition Patient Disposition: 01 Discharge Home - Discharge Condition Condition: Stable - Discharge Order Discharge Orders: Discharge Order (Routine); Ordered 12/29/17 Ordered By: Rosa Orosco - Physicians Team Primary Care Provider: Primary Care Estelle Viveros Attending Provider: Jose Manuel West
== END 2017-12-29 11:22 | disposition home or self-care (01) ==
LOC: NEDA 13:53 → NEPE 13:53 → NEPFCDU 22:52
PROVIDERS: ADMIT Internal Medicine; ATTEND Internal Medicine
DX: Z88.2 Allergy status to sulfonamides; M43.6 Torticollis; R53.81 Other malaise; R51 Headache